=== PATIENT | female | born 1955 | race Caucasian/White ===

== ENCOUNTER 2020-05-06 09:54 | Outpatient (CLI) | payer OTHER, SELFPAY ==
--- NOTE | ~2020-05-06 | XR_ITS ---
EXAMINATION: XR hip BI wo pelvis INDICATION: Bilateral hip pain TECHNIQUE: Two views of each hip are obtained. COMPARISON: 07/12/2012 FINDINGS: Bone alignment is normal. There is no fracture. There is mild bilateral hip osteoarthritis, unchanged since the comparison examination. Pelvic phleboliths are noted. The soft tissues are other enriquez unremarkable. IMPRESSION: 1. Mild osteoarthritis of the hips. Reviewed, dictated and finalized at location A.
== END 2020-05-06 09:55 | disposition home or self-care (01) ==
LOC: ANHIMG 10:11
PROVIDERS: PCP Family Medicine; Visit Provider Family Medicine
DX: M25.559 Pain in unspecified hip (principal); M16.0 Bilateral primary osteoarthritis of hip
CPT/HCPCS: 73521

== ENCOUNTER 2021-04-28 15:37 | Emergency (ER) | payer OTHER, SELFPAY ==
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
[2021-04-28 16:10] VITALS: BP 129/79; PULSE 91; RESP 20; TEMP 36.4; O2SAT 99
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
--- NOTE | 2021-04-28 16:56 | PC.NURSE ---
1638-Sling placed on pt for comfort
== END 2021-04-28 16:43 | disposition home or self-care (01) ==
PROVIDERS: Emergency Provider Nurse Practitioner; PCP Family Medicine
DX: S13.9XXA Sprain of joints and ligaments of unspecified parts of neck, initial encounter (principal); V49.40XA Driver injured in collision with unspecified motor vehicles in traffic accident, initial encounter
CPT/HCPCS: 73000; 99213; A4565; G0463

== ENCOUNTER 2021-06-05 11:32 | Outpatient (CLI) | payer OTHER, SELFPAY ==
--- NOTE | ~2021-06-05 | XR_ITS ---
XR_[id number] 06/05/2021 12:17 Indication: Radiculopathy Procedure: 4 views of the cervical spine Comparison: 03/25/2010 Findings: Normal cervical lordosis. No fracture, subluxation or dislocation. There are mild degenerat jorge l endplate changes at C3-4, C5-6 and C6-7. No prevertebral soft tissue swelling. There is mild mult ilevel uncinate and facet degenerative change. Lung apices are normal. Odontoid process within normal limits. Impression: 1: Mild cervical spondylosis. Reviewed, dictated and finalized at location A. GREE TRACER Impression: 1: Mild cervical spondylosis.
== END 2021-06-05 11:33 | disposition home or self-care (01) ==
LOC: ANHIMG 11:38
PROVIDERS: PCP Family Medicine; Visit Provider Physician Assistant
DX: M54.12 Radiculopathy, cervical region (principal); M47.812 Spondylosis without myelopathy or radiculopathy, cervical region
CPT/HCPCS: 72040

== ENCOUNTER 2021-07-08 15:37 | Outpatient (CLI) | payer OTHER, SELFPAY ==
--- NOTE | ~2021-07-08 | MR_ITS ---
EXAMINATION: MR cervical spine wo con DATE: 07/08/2021 16:41 INDICATION: Cervical radiculopathy. TECHNIQUE: Magnetic resonance imaging (MRI) of the cervical spine was performed without intravenous c ontrast. Sequences included sagittal T2-weighted FSE, sagittal T2-weighted FS FSE, sagittal T1-weight ed FSE, axial MERGE, and axial T2-weighted FSE. COMPARISON: Cervical spine MRI 12/11/2003, radiographs 06/05/2021 FINDINGS: There is 4 degrees levocurvature of cervical spine. There is mild chronic anterior wedging of C5 vertebral body. There is mildly decreased disc height at C2-C3 and C3-C4 and moderately decreas ed disc height from C4-C5 through C6-C7 with endplate remodeling. The spinal cord signal intensity is normal. The following disc levels are specifically discussed: C2-C3: There is a central protrusion. There is mild bilateral uncovertebral joint osteoarthritis. The re is severe bilateral facet joint osteoarthritis. There is mild left neural foraminal stenosis. Ther e is mild central canal stenosis with ventral indentation of the spinal cord. C3-C4: The disc is bulging. There is severe bilateral uncovertebral joint osteoarthritis. There is mo derate right and mild left facet joint osteoarthritis. There is moderate right and mild left neural f oraminal stenosis. There is mild central canal stenosis with ventral indentation of the spinal cord. C4-C5: The disc is bulging. There is severe bilateral uncovertebral joint osteoarthritis. There is mo derate right and mild left facet joint osteoarthritis. There is moderate bilateral neural foraminal s tenosis. There is mild central canal stenosis. C5-C6: The disc is bulging. There is severe bilateral uncovertebral joint osteoarthritis. There is mo derate right and severe left facet joint osteoarthritis. There is moderate right and mild left neural foraminal stenosis. There is mild central canal stenosis. C6-C7: The disc is bulging. There is severe bilateral uncovertebral joint osteoarthritis. There is se sharmila bilateral facet joint osteoarthritis. There is moderate bilateral neural foraminal stenosis. The re is mild central canal stenosis with ventral indentation of the spinal cord. C7-T1: The disc does not extend beyond the endplate margin. There is mild bilateral uncovertebral caitlyn nt osteoarthritis. There is severe bilateral facet joint osteoarthritis. There is mild bilateral neur al foraminal stenosis. There is no central canal stenosis. IMPRESSION: 1. Moderate cervical spondylosis. Reviewed, dictated and finalized at location A. PRODUCTION COOK
== END 2021-07-08 15:38 | disposition home or self-care (01) ==
PROVIDERS: PCP Family Medicine; Visit Provider Family Medicine
DX: M47.23 Other spondylosis with radiculopathy, cervicothoracic region (principal); M48.03 Spinal stenosis, cervicothoracic region
CPT/HCPCS: 72141

== ENCOUNTER 2022-09-03 07:48 | Outpatient (CLI) | payer OTHER, SELFPAY ==
--- NOTE | ~2022-09-03 | MM_ITS ---
EXAMINATION: MM screening lizeth BI w corey HISTORY: Screening mammogram TECHNIQUE: Craniocaudal and mediolateral oblique 3-D tomosynthesis images were obtained and synthetic 2-D images were generated. CAD analysis was submitted and interpreted. COMPARISON: 04/11/2019, 04/22/2014 bilateral screening mammogram examinations BREAST PARENCHYMAL COMPOSITION: There are scattered areas of fibroglandular density. FINDINGS: Right breast: There is no evidence of suspicious mass, calcification, or architectural dist ortion to suggest malignancy in the right .breast. There has been no suspicious interval change. Left breast: Stable skin lesion in the lower mid outer posterior left breast, unchanged since 04/22/20 14. There is a linear array of linear microcalcifications in the upper outer left breast which are suspic ious. Magnification views are recommended. IMPRESSION: 1. Linear array of grouped linear microcalcifications in the upper outer left breast 2. Magnification diagnostic mammographic views of left breast are recommended BI-RADS Category 0: Incomplete: Needs additional imaging evaluation. Reviewed, dictated and finalized at location A. LFISH PROCESSING MACHINE TENDER IMPRESSION: 1. Linear array of grouped linear microcalcifications in the upper outer left b reast 2. Magnification diagnostic mammographic views of left breast are recommended BI-RADS Category 0: Incomplete: Needs additional imaging evaluation.
== END 2022-09-03 07:49 | disposition home or self-care (01) ==
PROVIDERS: PCP Family Medicine; Visit Provider Family Medicine
DX: Z12.31 Encounter for screening mammogram for malignant neoplasm of breast (principal); R92.8 Other abnormal and inconclusive findings on diagnostic imaging of breast
CPT/HCPCS: 77063; 77067

== ENCOUNTER 2022-09-20 13:30 | Outpatient (CLI) | payer OTHER, SELFPAY ==
--- NOTE | ~2022-09-20 | MMUS_ITS ---
EXAMINATION: MM diagnostic lizeth LT w corey, US breast LT limited HISTORY: Linear array of grouped linear microcalcifications in upper outer left breast on August screening mammogram TECHNIQUE: Additional ML 3-D tomosynthesis images of the left breast were performed and synthetic 2-D images were generated. Magnification ML, MLO and CC views. CAD analysis was submitted and interprete d. High resolution upper outer quadrant left breast ultrasound was performed. COMPARISON: 09/03/2022, 04/11/2019 bilateral screening mammogram examinations FINDINGS: MAMMOGRAPHIC FINDINGS: There is a linear array of linear microcalcifications in the upper outer left breast. ULTRASOUND: There is no sonographic correlate for the microcalcifications. No suspicious mass or shadowing is det ected. A couple of benign appearing lymph nodes are noted at 2:00 and 3:00 13 cm from the nipple. IMPRESSION: 1. Indeterminate linear array of linear microcalcifications in upper outer quadrant of left breast wi thout sonographic correlate 2. Stereotactic biopsy of upper outer quadrant left breast grouped microcalcifications is recommended BI-RADS category 4, suspicious findings. Dr. Bethea telephoned the report and stereotactic biopsy recommendation on 09/20/2022 at 1517 hours to Linda Golden Reviewed, dictated and finalized at location A. ENT MENDER IMPRESSION: 1. Indeterminate linear array of linear microcalcifications in upper outer quad rant of left breast without sonographic correlate 2. Stereotactic biopsy of upper outer quadrant left breast grouped microcalcifi cations is recommended BI-RADS category 4, suspicious findings. Dr. Bethea telephoned the report and stereotactic biopsy recommendation on 023 at 1517 hours to Linda Mcallister IMPRESSION: 1. Indeterminate linear array of linear microcalcifications in upper outer quad rant of left breast without sonographic correlate 2. Stereotactic biopsy of upper outer quadrant left breast grouped microcalcifi cations is recommended BI-RADS category 4, suspicious findings. Dr. Btehea telephoned the report and stereotactic biopsy recommendation on 023 at 1517 hours to Linda Mcallister
== END 2022-09-20 13:31 | disposition home or self-care (01) ==
LOC: ANHIMG 13:31
PROVIDERS: PCP Family Medicine; Visit Provider Family Medicine
DX: R92.8 Other abnormal and inconclusive findings on diagnostic imaging of breast (principal)
CPT/HCPCS: 76642; 77061; 77065; G0279

== ENCOUNTER 2022-10-05 12:20 | Outpatient (CLI) | payer OTHER, SELFPAY ==
--- NOTE | ~2022-10-05 | MM_ITS ---
EXAMINATION: MM stereotactic bx LT, MM post biopsy diagnostic LT, MM stereotactic specimen LT, Specim en Radiograph, Tissue Marker Clip Placement, Unilateral Mammogram DATE: 10/05/2022 14:30 (accession [id number]), 10/05/2022 14:31 (accession [id number]), 10/05 14:31 (accession [id number]) INDICATION: Abnormal mammogram: Indeterminate linear array of linear microcalcifications in the upper outer quadrant of the left breast on September 20, 2022. TECHNIQUE AND FINDINGS: The risks and potential benefits of the procedure were discussed with the patient and written informe d consent was obtained. Timeout procedure was performed. The patient was placed in the prone position on the dedicated stereotactic table with the left breast in lateral medial compression, and the area of interest was localized and targeted utilizing digital imaging with stereotaxis. After sterile preparation of the skin, 1% lidocaine was utilized for local anesthesia at the skin pun cture site and 2 % lidocaine with epinephrine was utilized for deeper local anesthesia/is about the b iopsy site. A 9G SportSetter vacuum assisted biopsy needle was advanced to the level of the calcification of interest from a lateral approach utilizing stereotactic guidance and a total of 12 tissue core bio psies were obtained. A specimen radiograph demonstrates that the calcifications of interest are included within the tissue cores. A tissue marker clip was then placed at the biopsy site. A digital mammographic exposure co nfirmed the successful deployment of the biopsy marker. The needle was removed and hemostasis was ac hieved. A sterile bandage was applied. The patient tolerated the procedure well and there is no jose miguel dence of significant immediate complication. The patient was given verbal as well as written postpro cedural instructions prior to discharge from the department. Tissue cores were submitted to surgical pathology for histologic analysis. A 2-view left unilateral digital mammogram was obtained post procedure, demonstrating the tissue jaylen er clip in expected position. IMPRESSION: 1. Successful stereotactic biopsy of upper outer quadrant left breast microcalcifications, followed by tissue marker clip placement. Please refer to pathology report for histologic analysis. Reviewed, dictated and finalized at Location [facility]. Reviewed, dictated and finalized at location A. IMPRESSION: 1. Successful stereotactic biopsy of upper outer quadrant left breast microca lcifications, followed by tissue marker clip placement. Please refer to pathol ogy report for histologic analysis. IMPRESSION: 1. Successful stereotactic biopsy of upper outer quadrant left breast microca lcifications, followed by tissue marker clip placement. Please refer to pathol ogy report for histologic analysis.
== END 2022-10-05 12:21 | disposition home or self-care (01) ==
PROVIDERS: PCP Family Medicine; Visit Provider Family Medicine
DX: R92.0 Mammographic microcalcification found on diagnostic imaging of breast (principal); R92.8 Other abnormal and inconclusive findings on diagnostic imaging of breast
CPT/HCPCS: 19081; 77065; 88305; A4648

== ENCOUNTER → 2023-01-08 07:25 | Outpatient (CLI) | payer OTHER, SELFPAY ==
--- NOTE | ~2023-01-08 | MR_ITS ---
MRI of the lumbar spine Clinical History: Back pain Technique: Axial T2-weighted images, and sagittal T1-weighted, T2-weighted, and T2 fat-sat images wer e acquired. Findings: There is no fracture or subluxation of the lumbar spine. Vertebral bodies maintain normal h eight and alignment. No suspicious bone marrow signal abnormality seen. At L1-L2, there is no disc bulge or herniation. There is moderate facet arthropathy. No spinal canal stenosis or neural foraminal narrowing. At L2-L3, there is moderate degenerative disc narrowing, with mild disc bulge and moderate facet arth ropathy. No olvin central canal stenosis. There is minimal right neural foraminal narrowing. Left jacinta ral foramen preserved. At L3-L4, there is minimal disc bulge with moderate facet arthropathy. No olvin central canal stenosi s. There is minimal left neural foraminal narrowing and mild right neural foraminal narrowing. At L4-L5, there is mild disc bulge with moderate facet arthropathy. No central canal stenosis. There is mild bilateral neural foraminal narrowing. At L5-S1, there is minimal disc bulge. There is advanced facet arthropathy. No central canal stenosis . There is moderate to severe left neural foraminal narrowing. Right neural foramen preserved. Paravertebral soft tissues are unremarkable. Impression: Mild degenerative spondylosis overall, as detailed above. Reviewed, dictated and finalized at [facility]. Impression: Mild degenerative spondylosis overall, as detailed above.
== END ==
PROVIDERS: PCP Family Medicine; Visit Provider Family Medicine
DX: M54.41 Lumbago with sciatica, right side (principal); M47.896 Other spondylosis, lumbar region
CPT/HCPCS: 72148

== ENCOUNTER 2025-05-31 00:53 | Day surgery (SDC) | payer OTHER, SELFPAY ==
--- OUTSIDE RECORDS SUMMARY | 2014-04-21 23:00 | XMS_ITS | Encounter Summary ---
Author Organization [facility] Address [address] [place] [address] Care Team Providers Care Manager Environmental Health And Safety Name Role Phone Unavailable Primary Care Provider Unavailabl e Reason for Visit * Diagnostic Imaging (Routine) - Closed Specialty Diagnoses / Procedures Referred By Elías aviles Referred To Contact Diagnoses Abnormal mammogram of left breast Procedures Breast Imaging Screening Outside Reference Devika Tidwell NP Phone: tel: fax: Referral ID Status Reason Start Date Expiration Date Visits Re quested Visits Authorized [id number] Closed 10/21/2022 11/20/2023 1 1 Encounter Details Date Type Department Care Team (Late st Contact Info) Description 04/22/2014 Hospital Encounter [facility] [address] [place] [address] Social History Tobacco Use Types Packs/Day Years Used Date Smoking Tobacco: Never Passive Smoke Exposure: Past Smokeless Tobacco: Never AUDIT-C Answer Date Recorded Q1: How often do you have a drink containing alc ohol? Monthly or less 04/16/2024 Q2: How many drinks containi ng alcohol do you have on a typical day when you are drinking? 1 or 2 04/16/2024 Q3: How often do you have si x or more drinks on one occasion? Never 04/16/2024 Personal Safety Answer Date Recorded Have you ever been in or are you currently in a harmful physical or emotional relationship or is someone making you feel afraid or unsafe? 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 Gender Identity Female 03/05/2022 7:52 AM CDT Sexual Orientation Straight 03/05/2022 7: 52 AM CDT documented as of this encounter Functional Status * Difference in Last Two Shree Scores Answer Date of Assessment Author 0 05/04/2024 8:00 AM CDT Octavia Vallejo RN * Question Answer Date of Assessment Author MAP (mmHg) 74 05/04/2024 11:50 AM CDT Leda Crocker OT * Question Answer Date of Assessment Author Childs Fall Risk Score (Score >= 45 places fall precaution order) 60 05/04/2024 8:00 AM CDT Octavia Vallejo ace, RN Prior Fall Event (Autopopulated from EMR) None found 05/04/2024 8:00 AM CDT Brigida Vallejo RN * Question Answer Date of Assessment Author BP Location Right arm 05/04/2024 7:43 AM CDT Ada Snell BP Method Automatic 05/04/2024 7:43 AM CDT Ada Snell * Fall Risk Interventions Question Answer Date of Assessment Author All Low Fall Interventions Applied Yes 05/04/2024 8:00 AM Octavia Vega RN All Moderate Fall Interventions Applied Yes 05/04/2024 8:00 AM HARLEENT Octavia Vallejo RN All Moderate Fall Risk Interventions EXCEPT: Fall risk sign with education;Gait belt at bedside;PT eval requested or obtained;OT eval requested or obtained 12/14/2022 1:12 PM Alem Arriola RN All High Fall Risk Interventions Applied No 05/04/2024 8:00 AM Octavia Vega RN All High Risk Interventions EXCEPT: Bed alarm;Chair alarm 05/04/2024 8:00 AM Octavia Vega RN Additional Interventions Applied Over-bed table on non-exit side 05/04/2024 8:00 AM Octavia Vega RN Reason For Exception(s) pacu 12/15/19 1:12 PM Alem Arriola RN Reason For Exception(s) pt calls appropriately 1 8:00 AM Octavia Vega GABRIELE * B.M.A.T. - Bedside Mobility Assessment Tool for Nurses Question Answer Date of Assessment Author Is patient able to participate in the BMAT? Yes 05/03/2024 8:37 PM Akira Jackson RN BMAT Level Level 3 - Yellow 05/03/2024 8:37 PM Akira Garza RN Level 3 Equipment Use assistive device such as cane/walker;Use non-powered stand aid 05/03/2024 8:37 PM Akira Jackson RN * Question Answer Date of Assessment Author 1. Has the patient self-reported, presented with clinical signs of, or have a documented history of any of the following within the past 30 days? No 05/03/2024 3:50 PM Octavia Vega ace, RN * Question Answer Date of Assessment Author Is the patient being treated today because it is known or suspected that they prepared, started, or tried to end their life? No 05/03/2024 3:50 PM Octavia Vega ace, RN * Question Answer Date of Assessment Author 1. In the past month, have y ou wished you were or that you could go to sleep and not wake up? No 05/03/2024 3:50 PM Octavia Vega ace, RN 2. In the past month, have y ou actually had any thoughts of killing yourself? No 05/03/2024 3:50 PM Octavia Vega ace, RN 6. Have you ever done anything, started to do anything, or prepared to do anything to end your life? No 05/03/2024 3:50 PM Octavia Vega, GABRIELE * Suicide Risk Level Answer Date of Assessment Author No risk level 05/03/2024 3:50 PM Octavia Vega RN * Self-Injurious Risk Level Answer Date of Assessment Author No risk level 05/03/2024 3:50 PM Octavia Vega, GABRIELE * Alcohol Withdrawal BP Hierarchy Answer Date of Assessment Author 82 12/14/2022 1:10 PM Alem Arriola, GABRIELE * Pressure Injury Prevention Question Answer Date of Assessment Author Pressure Ulcer Prevention Interventions Keep skin clean and dry (Sensory Perception/Moisture ) 05/03/2024 8:37 PM Akira Jackson RN * Transdermal Patch Admission Assessment Question Answer Date of Assessment Author Transdermal Patch Assessment on Admission Not Present 05/03/2024 3:50 PM Octavia Vega ace, RN * AUDIT-C Score Answer Date of Assessment Author 1 04/16/2024 3:47 PM Stephania Caballero RN * Alcohol Use Question Answer Date of Assessment Author Q1: How often do you have a drink containing alcohol? Monthly or less 04/16/2024 3:47 PM Saranya Caballero RN Q2: How many drinks containing alcohol do you have on a typical day when you are drinking? 1 or 2 04/16/2024 3:47 PM Saranya Caballero RN Q3: How often do you have six or more drinks on one occasion? Never 04/16/2024 3:47 PM Saranya Caballero RN * Integumentary Question Answer Date of Assessment Author Skin Color Appropriate for ethnicity 05/03/2024 8:37 PM Akira Jackson RN Skin Condition/Temp Warm;Dry 05/03/2024 8 :37 PM Akira Jackson RN Skin Integrity Surgical incision 05/04/2024 8:0 0 AM Octavia Vega RN Skin Turgor Non-tenting 05/03/2024 8:37 PM Akira Jackson RN Integumentary Additional Assessments Yes-Shree 05/03/2024 8:37 PM Akira Jackson RN Integumentary (WDL) X 05/04/2024 8 :00 AM Octavia Vega RN Skin Location R hip 05/04/2024 8:00 AM Octavia Vega RN * Wound (LDAs) Question Answer Date of Assessment Author Type of Wound (LDA) Wound 05/03/2024 3:35 PM CD T Keira Hurley, GABRIELE * Shree Scale Question Answer Date of Assessment Author Shree Scale Used Shree 05/03/2024 9:26 AM CDT Rhina Burger, GABRIELE * Question Answer Date of Assessment Author Affect Flat 03/24/2022 8:00 AM CDT Marilyn Aragon RN Mood Angry 03/24/2022 8:00 AM CDT Edi mckinney, Marilyn Joseph RN * Question Answer Date of Assessment Author Percent Meal Eaten (%) 75 05/04/2024 7:45 AM CDT Ada Snell * Question Answer Date of Assessment Author BP Location Right arm 05/04/2024 7:43 AM CDT Ada Snell BP Method Automatic 05/04/2024 7:43 AM CDT Ada Snell * Question Answer Date of Assessment Author Bed In Lowest Position Yes 03/25/2022 2:00 PM HARLEENT Sandra Tidwell RN Bed Wheels Locked Yes 03/25/2022 2:00 PM CDT Sandra Tidwell RN * Fall Risk Interventions Question Answer Date of Assessment Author All Low Fall Interventions Applied Yes 05/04/2024 8:00 AM Octavia Vega RN All Moderate Fall Interventions Applied Yes 05/04/2024 8:00 AM HARLEENT Octavia Vallejo RN All Moderate Fall Risk Interventions EXCEPT: Fall risk sign with education;Gait belt at bedside;PT eval requested or obtained;OT eval requested or obtained 12/14/2022 1:12 PM HARLEENT Alem Monsivais RN All High Fall Risk Interventions Applied No 05/04/2024 8:00 AM Octavia Vega RN All High Risk Interventions EXCEPT: Bed alarm;Chair alarm 05/04/2024 8:00 AM Octavia Vega RN Additional Interventions Applied Over-bed table on non-exit side 05/04/2024 8:00 AM Octavia Vega RN Reason For Exception(s) pacu 12/15/19 1:12 PM HARLEENT Alem Monsivais RN Reason For Exception(s) pt calls appropriately 1 8:00 AM CDT Octavia Vallejo RN * Question Answer Date of Assessment Author Toileting: Assistance with Bedside commode 03/25/2022 8:00 AM CDT Sandra Tidwell RN * ADL Screening Question Answer Date of Assessment Author Patient's Vision Adequate to Safely Complete Daily Activities Yes 05/03/2024 3:50 PM HARLEENT Octavia Vallejo ace, RN Patient's Judgement Adequate to Safely Complete Daily Activities Yes 05/03/2024 3:50 PM HARLEENT Octavia Vallejo ace, RN Patient's Memory Adequate to Safely Complete Daily Activities Yes 05/03/2024 3:50 PM HARLENET Octavia Vallejo ace, RN Patient Able to Express Needs/Desires Yes 05/03/2024 3:50 PM HARLEENT Octavia Vallejo ace, RN Dressing Independent 05/03/2024 3:50 PM Octavia Covarrubias RN Grooming Independent 05/03/2024 3:50 PM Octavia Covarrubias RN Feeding Independent 05/03/2024 3:50 PM HARLEENT Octavia Sandy RN Bathing Independent 05/03/2024 3:50 PM Octavia Covarrubias RN Toileting Independent 05/03/2024 3:50 PM Octavia Covarrubias RN In/Out Bed Independent 05/03/2024 3:50 PM Octavia Covarrubias RN Walks in Home Independent 05/03/2024 3:50 PM CDT Octavia Guthrie RN Weakness of Legs None 05/03/2024 3:50 PM Octavia Calixto RN Weakness of Arms/Hands None 05/03/2024 3:50 PM Octavia Vega RN Hearing - Right Ear Functional 05/03/2024 3:50 PM CD T Octavia Vallejo RN Hearing - Left Ear Functional 05/03/2024 3:50 PM Octavia Vega RN Dominant hand? Right 05/03/2024 3:50 PM HARLEENT Wax tiana, Octavia Shruthi, RN Decline in ADLs in last 2 weeks? No 05/03/2024 3:50 PM HARLEENT Octavia Vallejo ace, RN * Therapy Consults Question Answer Date of Assessment Author PT Evaluation Needed 1 05/03/2024 3:50 PM C Octavia Ludwig RN OT Evaluation Needed 1 05/03/2024 3:50 PM C Octavia Ludwig RN IT SUPPORT MANAGER Evaluation Needed 2 05/03/2024 3:50 PM HARLEENT Octavia Vallejo RN * Assistive Devices Question Answer Date of Assessment Author Assistive Devices/DME CPAP/BiPAP;Cane 05/03/2024 3:50 PM HARLEENT Octavia Vallejo RN * Nutrition Question Answer Date of Assessment Author Feeding Level of Assistance Able to feed self 03/25/2022 8:00 AM HARLEENT Sandra Tidwell RN Appetite Good 03/24/2022 9:00 PM HARLEENT Zaina Larkin od, RN Diet Supplement Name/Percent Consumed % consist carb 03/24/2022 9:00 PM CDT Toni Prather se, RN * Hygiene Question Answer Date of Assessment Author Oral Care Mouth rinsed 05/04/2024 8:00 AM Octavia Covarrubias RN Hygiene Level of Assistance Minimal assist 05/04/2024 8:00 AM Octavia Vega RN Reason not bathed/showered Bath already completed at home or other setting 05/03/2024 3:50 PM Octavia Vega RN Bath Not bathed/showered 05/04/2024 8:00 AM Octavia Bull RN documented as of this encounter Mental Status * Question Answer Entry Date Author Level of Consciousness Alert;Awake 8:37 PM Akira Jackson RN Orientation Oriented X4 (person, place, time, situation) 05/03/2024 8:37 PM Akira Jackson RN Neuro (WDL) X 05/04/2024 8:00 AM Octavia Vega RN * Short Blessed Test Question Answer Entry Date Author What year is it now? 0 04/16/2024 3:30 PM Saranya Caballero RN What month is it now? 0 04/16/2024 3:30 PM Saranya Caballero RN Without looking at the clock, tell me what time it is 0 04/16/2024 3:30 PM Saranya Caballero RN Count aloud backwards from 20-1 0 04/16/2024 3:30 PM Saranya Caballero RN Say the months of the year backwards in reverse order 0 04/16/2024 3:30 PM Saranya Caballero RN Repeat the name and address I asked you to remember 0 04/16/2024 3:30 PM Saranya Caballero RN Repeat this name and address after me Abdulaziz Bray [address] [place] [address] 04/16/2024 3:30 PM Saranya Caballero RN Short Blessed Total Score 0 04/16/2024 3:30 PM Saranya Caballero RN * Question Answer Entry Date Author Neuro (WDL) WDL 05/03/2024 9:26 AM CDT Rhina Tavarez RN documented in this encounter Plan of Treatment Not on file documented as of this encounter Procedures Procedure Name Priority Date/Time Associated Diagnosis Comments BREAST IMAGING MG SCREENING OUTSIDE REFERENCE Schedule Routine, Read Routine (OP Routine) 04/22/2014 12:00 AM CDT Abnormal mammogram of left breast documented in this encounter Results * Breast Imaging Screening Outside Reference (04/22/2014 12:00 AM CDT) Impressions [facility] - 10/21/2022 4:00 PM CDT These images are for Reference purposes only and have not been reviewed by [facility] Radiology. There will be no report generated by a [facility] Radiologist. Narrative [facility] - 10/21/2022 4:00 PM CDT EXAMINATION: Images For Reference Purposes Only us Devika Tidwell NP IMG MAMMO PROCEDURES Fin al Result [facility] documented in this encounter Visit Diagnoses Not on filedocumented in this encounter
--- OUTSIDE RECORDS SUMMARY | 2019-04-10 23:00 | XMS_ITS | Encounter Summary ---
Author Organization [facility] Address [address] [place] [address] Care Team Providers Care Strap Buckler Name Role Phone Unavailable Primary Care Provider Unavailabl e Reason for Visit * Diagnostic Imaging (Routine) - Closed Specialty Diagnoses / Procedures Referred By Elías aviles Referred To Contact Procedures Breast Imaging Screening Outside Reference Devika Tidwell NP Phone: tel: fax: Referral ID Status Reason Start Date Expiration Date Visits Re quested Visits Authorized [id number] Closed 10/19/2022 11/18/2023 1 1 Encounter Details Date Type Department Care Team (Late st Contact Info) Description 04/11/2019 Hospital Encounter [facility] [address] [place] [id number] Social History Tobacco Use Types Packs/Day Years [...] on file 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 Yes 05/03/2024 8:37 PM HARLEENT Akira Polanco RN BMAT Level Level 3 - Yellow 05/03/2024 8:37 PM CDT Akira Quach RN Level 3 Equipment Use assistive device such as cane/walker;Use non-powered stand aid 05/03/2024 8:37 PM HARLEENT Akira Polanco RN * Question Answer Date of Assessment Author 1. Has the patient self-reported, presented with clinical signs of, or have a documented history of any of the following within the past 30 days? No 05/03/2024 3:50 PM HARLEENT Octavia Vallejo ace, RN * Question Answer Date of Assessment Author Is the patient being treated today because it is known or suspected that they prepared, started, or tried to end their life? No 05/03/2024 3:50 PM HARLEENT Octavia Vallejo ace, RN * Question Answer Date of [...] end your life? No 05/03/2024 3:50 PM HARLEENT Octavia Vallejo RN * Suicide Risk Level Answer Date of Assessment Author No risk level 05/03/2024 3:50 PM HARLEENT Octavia Vallejo RN * Self-Injurious Risk Level Answer Date of Assessment Author No risk level 05/03/2024 3:50 PM HARLEENT Octavia Vallejo RN * Alcohol Withdrawal BP Hierarchy Answer Date of Assessment Author 82 12/14/2022 1:10 PM HARLEENT Alem Monsivais RN * Pressure Injury Prevention Question Answer Date [...] one occasion? Never 04/16/2024 3:47 PM Saranya Cablalero RN * Integumentary Question Answer Date of [...] of Wound (LDA) Wound 05/03/2024 3:35 PM Keira Gould RN * Shree Scale Question Answer Date of Assessment Author Shree Scale Used Shree 05/03/2024 9:26 AM CDT Rhina Burger, GABRIELE * Question Answer Date of Assessment Author Affect Flat 03/24/2022 8:00 AM CDT Marilyn Aragon RN Mood Angry 03/24/2022 8:00 AM CDT Marilyn Aragon RN * Question Answer Date of Assessment Author Percent Meal Eaten (%) 75 05/04/2024 7:45 AM CDT Ada Snell * Question Answer Date of Assessment Author BP Location Right arm 05/04/2024 7:43 AM CDT Ada Snell BP Method Automatic 05/04/2024 7:43 AM CDT Ada Snell * Question Answer Date of Assessment Author Bed In Lowest Position Yes 03/25/2022 2:00 PM CDT Sandra Tidwell RN Bed Wheels Locked Yes [...] EXCEPT: Bed alarm;Chair alarm 05/04/2024 8:00 AM HARLEENT Octavia Vallejo RN Additional Interventions Applied Over-bed table on non-exit side 05/04/2024 8:00 AM Octavia Vega RN Reason For Exception(s) pacu 12/15/19 1:12 PM HARLEENT Alem Monsivais RN Reason For Exception(s) pt calls appropriately 1 8:00 AM HARLEENT Octavia Vallejo RN * Question Answer Date of Assessment Author Toileting: Assistance with Bedside commode 03/25/2022 8:00 AM CDT Sandra Tidwell RN * ADL Screening Question Answer Date of Assessment Author Patient's Vision Adequate to Safely Complete Daily Activities Yes 05/03/2024 3:50 PM CDT Octavia Vallejo ace, RN Patient's Judgement Adequate to Safely Complete Daily Activities Yes 05/03/2024 3:50 PM HARLEENT Octavia Vallejo ace, RN Patient's Memory Adequate to Safely Complete Daily Activities Yes 05/03/2024 3:50 PM HARLEENT Octavia Vallejo ace, RN Patient Able to Express Needs/Desires Yes 05/03/2024 3:50 PM HARLEENT Octavia Vallejo ace, RN Dressing Independent 05/03/2024 3:50 PM HARLEENT Octavia Sandy RN Grooming Independent 05/03/2024 3:50 PM HARLEENT Octavia Sandy RN Feeding Independent 05/03/2024 3:50 PM HARLEENT Octavia Sandy RN Bathing Independent 05/03/2024 3:50 PM HARLEENT Octavia Sandy RN Toileting Independent 05/03/2024 3:50 PM Octavia Covarrubias RN In/Out Bed Independent 05/03/2024 3:50 PM Octavia Covarrubias RN Walks in Home Independent 05/03/2024 3:50 PM HARLEENT Octavia Guthrie RN Weakness of Legs None 05/03/2024 3:50 PM HARLEENT Octavia Townsend RN Weakness of Arms/Hands None 05/03/2024 3:50 PM HARLEENT Octavia Vallejo RN Hearing - Right Ear Functional 05/03/2024 3:50 PM CD T Octavia Vallejo RN Hearing - Left Ear Functional 05/03/2024 3:50 PM Octavia Vega RN Dominant hand? Right 05/03/2024 3:50 PM HRALEENT Octavia Parisi RN Decline in ADLs in last 2 weeks? No 05/03/2024 3:50 PM HARLEENT Octavia Vallejo ace, RN * Therapy Consults Question Answer Date of Assessment Author PT Evaluation Needed 1 05/03/2024 3:50 PM C Octavia Ludwig RN OT Evaluation Needed 1 05/03/2024 3:50 PM C Octavia Ludwig RN BRAND DIRECTOR Evaluation Needed 2 05/03/2024 3:50 PM HARLEENT Octavia Vallejo RN * Assistive Devices Question Answer Date of Assessment Author Assistive Devices/DME CPAP/BiPAP;Cane 05/03/2024 3:50 PM HARLEENT Octavia Vallejo RN * Nutrition Question Answer Date of Assessment Author Feeding Level of Assistance Able to feed self 03/25/2022 8:00 AM Sandra Bentley RN Appetite Good 03/24/2022 9:00 PM HARLEENT Zaina Larkin od, RN Diet Supplement Name/Percent Consumed % consist carb 03/24/2022 9:00 PM HARLEENT Toni Prather se, RN * Hygiene Question [...] name and address after me Abdulaziz Bray [address] [place] [address] 04/16/2024 3:30 PM Saranya Caballero RN Short Blessed Total Score 0 04/16/2024 3:30 PM Saranya Caballero RN * Question Answer Entry Date Author Neuro (IVET) WD 05/03/2024 9:26 AM CDT Rhina Tavarez RN documented in this encounter Plan of Treatment Not on file documented as of this encounter Procedures Procedure Name Priority Date/Time Associated Diagnosis Comments BREAST IMAGING MG SCREENING OUTSIDE REFERENCE Routine 04/11/2019 12:00 AM CDT documented in this encounter Results * Breast Imaging Screening Outside Reference (04/11/2019 12:00 AM CDT) Impressions [facility] - 10/19/2022 2:17 PM CDT These images are for Reference purposes only and have not been reviewed by [facility] Radiology. There will be no report generated by a [facility] Radiologist. Narrative [facility] - 10/19/2022 2:17 PM CDT EXAMINATION: Images For Reference Purposes Only us Devika Tidwell NP IMG MAMMO PROCEDURES Fin al Result [facility] documented in this encounter Visit Diagnoses Not on filedocumented in this encounter
[2025-05-24 10:29] VITALS: BMI 38.5
--- OUTSIDE RECORDS SUMMARY | 2025-05-31 00:56 | XMS_ITS | Encounter Summary ---
Author Organization [facility] Address [address] [place] [address] Phone Care Team Providers Care Certified Massage Therapist Name Role Phone Talat Mckeon DO Primary Care Provider [phone] Encounter Details Date Type Department Care Team (Late st Contact Info) Description 03/26/[address] [facility] Medicine Surgery [address] 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
--- OUTSIDE RECORDS SUMMARY | 2025-05-31 00:56 | XMS_ITS | Clinical Summary ---
Author Organization [facility] Address [address] [place] [address] Care Team Providers Care Senior Grant Writer Name Role Phone Talat Mckeon Primary Care Provider [phone] Allergies Active Allergy Reactions Criticality Noted Date Comments Iodinated Contrast Media Rash Medium 09/21/2021 Medications atorvastatin (LIPITOR) 40 mg tabletIndicatio ns:hyperlipidem ia Take 1 tablet (40 mg total) by mouth nightly 2 Active cetirizine (ZyrTEC) 10 mg capsuleIndicati ons:Seasonal Allergic Rhinitis Take 10 mg by mouth every morning Active metFORMIN (GLUCOPHAGE) 500 mg tabletIndicatio ns:type 2 diabetes mellitus Take 1 tablet (500 mg total) by mouth 2 (two) times a day with meals 2 Active FLUoxetine (PROzac) 20 mg capsuleIndicati ons:depression Take 1 capsule (20 mg total) by mouth every morning 2 Active folic acid (FOLVITE) 800 mcg tabletIndicatio ns:supplement Take 1 tablet (800 mcg total) by mouth every morning Active cholecalciferol (VITAMIN D-3) 25 mcg (1,000 unit) tabletIndicatio ns:Vitamin D Deficiency Take 1 tablet (1,000 Units total) by mouth every morning Active cyanocobalamin (vitamin B-12) 1,000 mcg tabletIndicatio ns:Prevention of Vitamin B12 Deficiency Take 1 tablet (1,000 mcg total) by mouth every morning Active pyridoxine (VITAMIN B-6) 100 mg tabletIndicatio ns:SUPPLEMENT Take 1 tablet (100 mg total) by mouth every morning Active CALCIUM-MAGNESI UM-ZINC ORALIndications :SUPPLEMENT Take 1 tablet by mouth nightly Active ALPHA LIPOIC ACID ORALIndications :supplement Take 1 tablet by mouth every morning Active fluticasone propionate (FLONASE) 50 mcg/actuation nasal sprayIndication s:Allergic Rhinitis Administer 1 spray into each nostril as needed for rhinitis Active docusate sodium (COLACE) 100 mg capsuleIndicati ons:constipatio n Take 1 capsule (100 mg total) by mouth daily as needed for constipation Active furosemide (LASIX ORAL)Indication s:edema/swellin g Take 1 tablet by mouth daily as needed (edema/swelling) Patient unsure of mg dose Active oxyCODONE (ROXICODONE) 5 mg immediate release tabletIndicatio ns:Pain Take 1 tablet (5 mg total) by mouth every 4 (four) hours as needed for pain (Breakthrough Pain) 30 tablet 4 Active Additional Information Patient not taking.Reported on 06/26/2024 traMADoL (ULTRAM) 50 mg tablet Take 1 tablet (50 mg total) by mouth every 8 (eight) hours as needed for pain 42 tablet 4 Active Additional Information Patient not taking.Reported on 06/26/2024 acetaminophen (TYLENOL) 500 mg tablet Take 2 tablets (1,000 mg total) by mouth every 8 (eight) hours 90 tablet 1 4 Active aspirin 81 mg enteric coated tabletIndicatio ns:prevention of thrombosis Take 1 tablet (81 mg total) by mouth 2 (two) times a day After 30 days is complete, you may resume your home dose of 81 mg daily 60 tablet 4 Active Additional Information Patient taking differently:81 mg oralDaily, After 30 days is complete, you may resume your home dose of 81 mg daily, Indications: prevention of thrombosis, Reported on 06/26/2024 meloxicam (MOBIC) 7.5 mg tablet Take 1 tablet (7.5 mg total) by mouth daily 30 tablet [address] (PROTONIX) 20 mg EC tablet Take 1 tablet (20 mg total) by mouth daily 30 tablet 4 Active senna-docusate (Senna-S) 8.6-50 mg Take 2 tablets by mouth 2 (two) times a day 80 tablet 1 4 Active Additional Information Patient not taking.Reported on 06/26/2024 Active Problems Problem Noted Date Diagnosed Date Osteoarthritis of right hip, unspecified osteoarthritis type 05/03/2024 Primary osteoarthritis of right hip 03/27/2024 Mass of left breast 11/15/2022 Atypical ductal hyperplasia of breast 11/07/2022 Type 2 diabetes mellitus without complications 0 03/26/2022 Pure hypercholesterolemia, unspecified Obesity, unspecified 03/26/2022 Spinal stenosis, cervical region 03/26/2022 Cervical radiculopathy 03/26/2022 S/P cervical spinal fusion 03/23/2022 Cervical spondylosis with myelopathy 03/01/2022 Overview (03/01/2022): Added automatically from request for surgery [id number] Cervical spinal stenosis 03/01/2022 Overview (03/01/2022): Added automatically from request for surgery [id number] Cervical radiculopathy 03/01/2022 Overview (03/01/2022): Added automatically from request for surgery [id number] Encounters Date Type Department Care Team Description 03/26/[address] [facility] Medicine Surgery [address] [facility] [address] [place] [address] Ivon Ramires from Last 3 Months Immunizations Immunization Administration Dates Next Due Influenza, Quadrivalent, Rec ombinant, Egg Free, Preservative Free, Intramuscular 07/01/2021,05/05/2020,04/11/2019 Influenza, Quadrivalent, Spl it, Preservative Free, Intramuscular 03/23/2018 Influenza, Trivalent, IM (MDV) 05/05/2013 Influenza, Trivalent, Preser vative Free, Intramuscular 04/25/2015 Influenza, Unspecified 06/04/2021 Pneumococcal Polysaccharide PPV23 04/09/2019 TD Preservative Free 09/08/2021 ZOSTER LIVE 05/25/2014 Surgical History Surgery Date Site/Laterality Comments HYSTERECTOMY 07/25/2019 - 07/24/2020 APPENDECTOMY 07/25/1978 - 07/24/1979 OOPHERECTOMY 07/25/1978 - 07/24/1979 Right DILATION AND CURETTAGE OF UTERUS FOOT SURGERY 07/25/1997 - 07/24/1998 Left removal of tumor of left foot with recurrance removed again then radiation for 6 months SPINAL FUSION 03/23/2022 cervical CATARACT EXTRACTION 09/22/2022 - 10/22/2022 Bilateral FL FLUORO GUIDED LUMBAR PUNCTURE 02/14/2023 Right FLUORO GUIDED INJECTION HIP RIGHT 05/12/2023 Right SECTION [id number] COLONOSCOPY WISDOM TOOTH EXTRACTION TONSILLECTOMY rotten out pt reports no surgery. unknown time OVARIAN CYST REMOVAL Bilateral TUBAL LIGATION BREAST BIOPSY 11/22/2022 - 12/22/2022 Left Medical History Medical History Date Comments Anxiety Arthritis Asthma Diabetes mellitus Hypercholesteremia Sleep apnea Obesity PONV (postoperative nausea and vomiting) IV meds for relief, pt reports no help Motion sickness Type 2 diabetes mellitus Family History Medical History Relation Name Comments Diabetes Brother Breast cancer Father Heart disease Father Hypertension Father Stroke Father Cancer Mother Seizures Mother Anesthesia problems Neg Hx Relation Name Status Comments Brother Father Mother Social History Tobacco Use Types Packs/Day Years Used Date Smoking Tobacco: Never Passive Smoke Exposure: Past Smokeless Tobacco: Never Tobacco Cessation:Counseling Given: Not Answered AUDIT-C Answer Date Recorded Q1: How often [...] on file Legal Sex Female 1:02 AM [employer] Gender Identity Female 03/05/2022 7:52 AM CDT Sexual Orientation Straight 03/05/2022 7: 52 AM CDT Last Filed Vital Signs Vital Sign Reading Time Taken Comments Blood Pressure 110/64 05/04/2024 11:50 AM CDT Pulse 91 05/04/2024 11:50 AM CDT Temperature 36.7 C (98.1 F) 05/04/2024 7:43 AM CDT Respiratory Rate 14 05/04/2024 7:43 AM CDT Oxygen Saturation 97% 05/04/2024 11: 50 AM CDT Inhaled Oxygen Concentration - - Weight 108.2 kg (238 lb 9.6 oz) 05/03/2024 8:40 AM CDT Height 165.1 cm (5' 5) 05/03/2024 8:40 AM CDT Body Mass Index 39.71 05/03/2024 8:40 AM CDT Plan of Treatment Health Maintenance Due Date Last Done Comments Albumin Creatinine Ratio, Urine 1955 Colon Cancer Screening-Colonoscopy 1955 Depression Screening 1955 Hepatitis C Screening 1955 Dilated Eye Exam 1955 Foot Exam 1955 Lipid Panel 1955 Hepatitis B Screening 01/25/1972 Zoster Vaccine (2 of 3) 07/20/2014 05/25/2014 Well Visit 65+ 2019 Pneumococcal vaccine 65+ (2 of 2 - PCV) 04/09/2020 04/09/2019 DTaP/Tdap/Td Vaccine (1 - Tdap) 09/09/2021 Osteoporosis Screening-Bone Density Scan 03/10/2024 03/10/2022 Hemoglobin A1C 10/14/2024 04/16/2024, 03/26, 03/16/2022 Breast Cancer Screening-Mammogram 02/21/2025 024 Covid-19 Vaccine (3 - 2024-2 6 season) 2025 12/29/2020, 12/08/2020 Influenza Vaccine (#1) 2025 , 06/04/2021, 05/05/2020, Additional history exists Fall Risk Assessment 05/04/2025 05/04/2024 eGFR 05/04/2025 05/04/2024, 03/26, 03/25/2022, Additional history exists Medical Devices Implanted Type Area Cartridge Assembling Machine Adjuster Device Identifier Shelf Expiration Date Model / Serial / Lot Medtronic Inc Bmp Infuse Sm [id number] - [id number] Implanted:Qty: 1 on 03/23/2022 by Talat Stovall MD at [facility] N/A: Spine Cervical Medtronic Inc 03/25/2023 [id number] / / [id number] Allosource 1-4mm Freeze Dried Crushed Graft 30ml Bone Cancellous [id number] - [id number] Implanted:Qty: 1 on 03/23/2022 by Talat Stovall MD at [facility] N/A: Spine Cervical Allosource 12/19/2025 [id number] / / [id number] Depuy Synthes Spine 3.5mm 16mm Ply Spine Screw Bone Nonsterile 4mm Reynold [id number] - [id number] Implanted:Qty: 7 on 03/23/2022 by Talat Stovall MD at [facility] N/A: Spine Cervical Depuy Synthes Spine [id number] / / Depuy Synthes Spine 4.5mm 26mm Ply Spine Pedicle Screw Bone Nonsterile 4mm Reynold [id number] - [id number] Implanted:Qty: 3 on 03/23/2022 by Talat Stovall MD at [facility] N/A: Spine Cervical Depuy Synthes Spine [id number] / / Depuy Synthes Spine 5.5mm 30mm Ply Spine Pedicle Screw Bone Nonsterile 4mm Reynold [id number] - [id number] Implanted:Qty: 4 on 03/23/2022 by Talat Stovall MD at [facility] N/A: Spine Cervical Depuy Synthes Spine [id number] / / Depuy Synthes Spine 5.5mm 34mm Ply Spine Pedicle Screw Bone Nonsterile 4mm Reynold [id number] - [id number] Implanted:Qty: 2 on 03/23/2022 by Talat Stovall MD at [facility] N/A: Spine Cervical Depuy Synthes Spine [id number] / / Depuy Synthes Spine [id number] Set Screw - [id number] Implanted:Qty: 16 on 03/23/2022 by Talat Stovall MD at [facility] N/A: Spine Cervical Depuy Synthes Spine [id number] / / Depuy Synthes Spine 4mm 240mm Straight Reynold Spinal Titanium [id number] - [id number] Implanted:Qty: 3 on 03/23/2022 by Talat Stovall MD at [facility] N/A: Spine Cervical Depuy Synthes Spine [id number] / / Depuy Synthes Spine Symphony 4mm Spine Occipitocervicothoraci c Short Lateral Offset [id number] - [id number] Implanted:Qty: 1 on 03/23/2022 by Talat Stovall MD at [facility] N/A: Spine Cervical Depuy Synthes Spine [id number] / / Bard Peripheral Vascular Ghiatas 20ga 20cm 9cm Beaded Needle Breast Wire Localization [id number] - [id number] Implanted:Qty: 1 on 12/14/2022 by Dwain Amaral MD at [facility] Left: Breast Bard Peripheral Vascular [id number] / / Reading Orthopaedics Shell Acetabular Trident Ii Tritanium E Od52mm Hip 5 Screw Hole Cluster Sterile 702-04-52e - [id number] Implanted:Qty: 1 on 05/03/2024 at [facility] Right: Hip [employer] 03/25/2029 702-04-52E / / [id number] Thien Orthopaedics Liner Acetabular Hip Trident X3 40mm Polyethylene 0 Degree Size E 723-00-40e - [id number] Implanted:Qty: 1 on 05/03/2024 at [facility] Right: Hip [employer] 01/02/2029 723-00-40E / / [id number] Reading Orthopaedics V40 Hip +4mm Offset Colton Taper Sleeve Adapter Titanium 6519-T-204 - [id number] Implanted:Qty: 1 on 05/03/2024 at [facility] Right: Hip [employer] 01/31/2029 6519-T-204 / / [id number] Reading [employer]opaedics Stem Femoral Hip Collared Insignia [id number] High Offset Size 3 [id number] - [id number] Implanted:Qty: 1 on 05/03/2024 at [facility] Right: Hip [employer] 03/19/2029 [id number] / / [id number] Thien Orthopaedics 40mm Hip Colton Taper Head Femoral Biolox Delta 6519-1-040 - [id number] Implanted:Qty: 1 on 05/03/2024 at [facility] Right: Hip [employer] 02/27/2029 6519-1-040 / / [id number] Procedures Procedure Name Priority Date/Time Associated Diagnosis Comments EGFR Routine 05/04/2024 4:46 AM CDT POCT HEMOGLOBIN A1C Routine 04/16/2024 3:38 PM CDT SCREENING MAMMOGRAM BILATERAL W MYCHAL Schedule Routine, Read Routine (OP Routine) 02/22/2024 11:25 AM CDT Abnormal mammogram of left breast Atypical ductal hyperplasia of breast Unspecified lump in the left breast, overlapping quadrants DEXA AXIAL SKELETON BONE DENSITY 1 OR MORE SITES Schedule Routine, Read Routine (OP Routine) 03/10/2022 10:29 AM CDT Osteoporosis, post-menopausal from Last 3 Months or Most Recently Relevant to Health Maintenance Results * eGFR (05/04/2024 4:46 AM CDT) eGFR 79 >=60 mL/min/1. 73 m2 Comment: Interpretive Data Reference Interval Normal >/= 90 mL/min/1.73m2 Mildly decreased* 60 - 89 mL/min/1.73m2 Mildly to moderately decreased 45 - 59 mL/min/1.73m2 Moderately to severely decreased 30 - 44 mL/min/1.73m2 Severely decreased 15 - 29 mL/min/1.73m2 Kidney Failure < 15 mL/min/1.73m2 *Relative to young adult level Estimated glomerular filtration rate is determined by the 2020 CKD-EPI equation recommended by the National Kidney Foundation (A Unifying Approach to GFR Estimation: Recommendations of the NKF-ASK Task Force on Reassessing the Inclusion of Race in Diagnosing Kidney Disease, JASN 2020). The CKD-EPI equation should not be used for patients with unstable renal function and has not been validated in children and those over 70. Current interpretive data was last reviewed 2021. Blood 05/04/2024 4:46 AM CDT 05/04/2024 5:05 AM CDT Gertrude Garcia MD LAB BLOOD ORDERABLES Final Result Performing Organization Address [facility] de Phone Number [facility] [address] [facility] Department [place] [address] * (ABNORMAL) POCT hemoglobin A1c (04/16/2024 3:38 PM CDT) Hgb A1C, POC 6.0(H) 4.0 - 5.6 % Est Average Gluc POC 126 mg/dL [facility] Comment: The ADA recommends reporting an estimated Average Glucose (eAG) with all Hemoglobin A1c results using the equation derived from a study of 507 normal and diabetic adults. Minority populations were underrepresented and children were not included. (Diabetes Care 31:8352-8126, 2008). The eAG is not equivalent to a fasting glucose. Blood 04/16/2024 3:38 PM CDT 04/16/2024 3:38 PM CDT Ramy Selby MD POINT OF CARE TEST O RDERABLES Final Result Performing Organization Address [facility] de Phone Number [facility] Department [place] [address] * Screening Mammogram Bilateral W Mychal (02/22/2024 11:25 AM CDT) Anatomical Region Laterality Modality Breast Bilateral Mammography Narrative 02/23/2024 1:57 PM CDT Mammogram Technique: Bilateral Digital Breast Tomosynthesis, Bilateral C-view 2D Screening mammogram. Views obtained: bilateral craniocaudal and bilateral mediolateral oblique. Computer Aided Detection was performed. Mammogram Findings: The present examination has been compared to prior imaging studies performed on 04/22/2014, 04/11/2019, 09/03/2022, 09/20/2022, 10/05/2022, 11/12/2022 and 12/14/2022. There are scattered areas of fibroglandular density. Finding 1: There is a post-surgical scar in the left breast. Finding 2: There are stable intramammary lymph nodes in both breasts. There is no suspicious abnormality in either breast. Impression: Benign. Annual screening mammography is recommended. OVERALL FINAL ASSESSMENT: BI-RADS CATEGORY 2: Benign. Procedure Note Adalgisa Cortes MD - 02/23/2024 Mammogram Technique: Bilateral Digital Breast Tomosynthesis, Bilateral C-view 2D Screening mammogram. Views obtained: bilateral craniocaudal and bilateral mediolateral oblique. Computer Aided Detection was performed. Mammogram Findings: The present examination has been compared to prior imaging studies performed on 04/22/2014, 04/11/2019, 09/03/2022, 09/20/2022, 10/05/2022, 11/12/2022 and 12/14/2022. There are scattered areas of fibroglandular density. Finding 1: There is a post-surgical scar in the left breast. Finding 2: There are stable intramammary lymph nodes in both breasts. There is no suspicious abnormality in either breast. Impression: Benign. Annual screening mammography is recommended. OVERALL FINAL ASSESSMENT: BI-RADS CATEGORY 2: Benign. Ariadna Mcpherson NP IMG MAMMO PROCEDURES Final Result * Dexa Axial Skeleton Bone Density 1 or 2 Site (03/10/2022 10:29 AM CDT) Anatomical Region Laterality Modality Body N/A Radiographic Lorena ging Narrative 03/10/2022 11:29 AM CDT Patient Name: Ling Moscoso Date of : 1955 Date of scan: 03/10/2022 Bone mineral density was performed on a Live On [employer] Go Discovery Densitometer. Based on machine cross-calibration and precision studies the least significant changes of this densitometer is 0.024 g/cm2 at the spine, 0.020 g/cm2 at the total proximal femur, and 0.014g/cm2 at the forearm. HISTORY: This is a 67 y.o. postmenopausal female with a history of asthma. She reports that she has never smoked. She has never used smokeless tobacco. Currently on treatment with calcium and vitamin D and current complaint of arm pain and neck pain. INDICATIONS: Menopause status and screening for osteoporosis. FINDINGS: BONE MINERAL DENSITY OF THE LUMBAR SPINE Bone Mineral Density (BMD) of the lumbar spine was measured from L1-L4 and the average density was calculated to be 1.097 gm/cm2. This corresponds to a T-score (standard deviations from the mean of young adults) of 0.5. There is no previous study available for comparison. BONE MINERAL DENSITY OF THE PROXIMAL FEMUR Bone Mineral Density (BMD) of the left hip total was found to be 0.877 gm/cm2. This corresponds to a T-score standard deviations from the mean of young adults of -0.5. Femoral neck is 0.707 gm/cm2 with a T-score (standard deviations from the mean of young adults) of -1.3. There is no previous study available for comparison. SUMMARY: Bone mineral density shows evidence of low bone mass at the proximal femur and moderately increased fracture risk (Osteopenia). ADDITIONAL COMMENTS: Postmenopausal Women and Men Over 50: Diagnostic criteria: Osteoporosis: BMD at or below -2.5 T-score; Osteopenia (low bone mass): BMD between -1.0 and -2.5 T-score. If the patient has a history of a fragility fracture, a fracture that occurred with trauma equivalent to a fall from a standing position or less, then the diagnosis is osteoporosis regardless of bone density. The history and data sections of the bone mineral density scan were prepared by Alem Tracy (R)(CBDT) who is accredited by the International Society of Clinical Densitometry. The overall patient assessment and scan interpretation were performed by Cesar Olsen M.D. who is certified by the International Society of Clinical Densitometry. [id number] Talat Stovall MD IMG DXA PROCEDURES Fin al Result from Last 3 Months or Most Recently Relevant to Health Maintenance Insurance MEDICARE [facility] [employer]AN [facility] [employer] MEDICARE Advance Directives For more information, please contact: [phone] * Full Code (Latest Code Status on File) Date Activated Date Inactivated Comments 05/03/2024 3:50 PM 05/04/2024 6:23 PM * Full Code Date Activated Date Inactivated Comments 03/23/2022 1:54 PM 03/25/2022 9:04 PM Care Teams Senior Grant Writer Relationship Specialty Start Date End Date Talat Mckeon DO PCP - General Family Medicine 02/11/22
--- OUTSIDE RECORDS SUMMARY | 2025-05-31 00:56 | XMS_ITS | Clinical Summary ---
Author Organization [facility] Address [address] [place] [address] Care Team Providers Care Medical Physicist Name Role Phone Alexi Edward MD Primary Care Provider [phone] Source Comments [facility],non-owned Affiliates and Associated Physician Practices is amultiple site organization consisting of ambulatory clinics and hospital sitesin [place], [place], [place] and [place]. This disclosure is being madepursuant to the Care Everywhere program and may not contain all information available regarding this patient. Last updated 18.[facility] Allergies Active Allergy Reactions Criticality Noted Date Comments Contrast-Iodinated Agents For Ct/Other Itching Medium 09/21/2021 Medications * Be aware that medications may not be up to date on this document. Alwaysverify current medications with the patient. atorvastatin (LIPITOR) 40 MG tablet Take 40 mg by mouth once daily 06/26/20 21 Active FLUoxetine (PROZAC) 20 MG capsule Take 20 mg by mouth once daily 06/26/20 21 Active metFORMIN (GLUCOPHAGE) 500 MG tablet Take 500 mg by mouth 2 times daily 07/05/20 21 Active methocarbamol (ROBAXIN) 750 MG tablet Take 750 mg by mouth 3 times daily 08/28/19 22 Active naproxen (NAPROSYN) 500 MG tablet Take 500 mg by mouth 2 times daily 08/17/19 22 Active OZEMPIC, 0.25 OR 0.5 MG/DOSE, 2 MG/1.5ML pen Inject 0.05 mg subcutaneously every 7 days 06/05/20 21 Active naproxen sodium (ALEVE) 220 MG tablet Take 220 mg by mouth 2 times daily Active multivitamin daily tablet Take 1 tablet by mouth daily with food Active Pyridoxine HCl (B-6) 100 MG Take 1 capsule by mouth once daily as needed Active Cholecalciferol (D3-1000 PO) Take 1,000 capsules by mouth once daily as needed Active Multiple Minerals-Vitamins (TIEN MAG ZINC +D3) TABS Take by mouth once daily as needed Active ASPIRIN-ACETAMINO PHEN PO Take 81 mg by mouth once daily as needed Active Cetirizine HCl (WAL-ZYR ALL DAY ALLERGY CHILD PO) Ac tive cetirizine (ZYRTEC ALLERGY) 10 MG gel capsule Take 10 mg by mouth once daily Active folic acid 400 MCG tablet Take 400 mcg by mouth once daily Active Biotin 1000 MCG Acti ve cyclobenzaprine (FLEXERIL) 10 MG tabletIndications :Neck pain,Cervical radiculopathy TAKE 1/2 TABLET BY MOUTH 3 TIMES A DAY NEEDED FOR MUSCLE SPASMS 30 tablet 01/27/20 22 Active Active Problems Problem Noted Date Diagnosed Date Cervical radiculopathy 06/19/2021 Immunizations Immunization Administration Dates Next Due INFLUENZA VACCINE 06/04/2021 Family History Medical History Relation Name Comments Anxiety Disorder Other Arthritis - Rheumatoid Other Asthma Other Diabetes - Type 2 Other Relation Name Status Comments Other Social History Tobacco Use Types Packs/Day Years Used Date Smoking Tobacco: Never Smokeless Tobacco: Never Tobacco Cessation:Counseling Given: No Alcohol Use Standard Drinks/Week Comments Never 0 (1 standard drink = 0.6 oz pur e alcohol) Comments Unknown Sex and Gender Information Value Date Recorded Sex Assigned at Not on file 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 Gender Identity Not on file Sexual Orientation Not on file Last Filed Vital Signs Vital Sign Reading Time Taken Comments Blood Pressure 130/75 12/01/2021 1:12 PM CDT Pulse 108 12/01/2021 1:12 PM CDT Temperature 36.9 C (98.4 F) 11/10/2021 11:05 AM CDT Respiratory Rate 18 09/21/2021 1:08 PM 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 KEEPER Oxygen Saturation 97% 12/01/2021 1:12 PM CDT Inhaled Oxygen Concentration - - Weight 104.3 kg (230 lb) 12/01/2021 1:12 PM CDT Height 163.8 cm (5' 4.5) 12/01/2021 1:12 PM CDT Body Mass Index 38.87 12/01/2021 1:12 PM CDT Plan of Treatment Health Maintenance Due Date Last Done Comments BONE DENSITY TESTING 1955 COLOGUARD (AGES 45-75) - COL ON CA SCREENING 1955 COLON MONITORING 1955 COLONOSCOPY - COLON CA SCREENING 1955 CT COLONOGRAPHY - COLON CA SCREENING 1955 Colorectal Cancer Screening 1955 FIT - COLON CA SCREENING 1955 FLEX SIG - COLON CA SCREENING 1955 MAMMOGRAM 1955 HEPATITIS C SCREENING 01/20/1972 DTAP/TDAP/TD VACCINES (1 - Tdap) 1973 PNEUMOCOCCAL VACCINE 50+ (1 of 1 - PCV) 01/25/2004 ZOSTER VACCINE (1 of 2) 01/25/2004 SCREENING FOR DIABETES 09/21/2021 DEPRESSION SCREENING 07/25/2024 COVID-19 VACCINE (1 - 2023-2 5 season) 2025 INFLUENZA VACCINE (#1) 2025 06/04/2021 Respiratory Syncytial Virus (RSV) Vaccine Pt: or over 60 yrs (1 - 1-dose 75+ series) 2029 HEPATITIS B VACCINE Aged Out No longe r eligible based on patient's age to complete this topic HIB VACCINE Aged Out No longer eligi ble based on patient's age to complete this topic HPV VACCINE Aged Out No longer eligi ble based on patient's age to complete this topic MENINGOCOCCAL (Group B) VACC INE SHARED DECISION-MAKING Aged Out No longer eligibl e based on patient's age to complete this topic MENINGOCOCCAL GROUPS A/C/Y/W VACCINE Aged Out No longer eligible b ased on patient's age to complete this topic Insurance [employer] [facility] [place] Care Teams Medical Physicist Relationship Specialty Start Date End Date Alexi Edward MD [address] [place] [id number] PCP - General 05/15/19
--- OUTSIDE RECORDS SUMMARY | 2025-05-31 00:56 | XMS_ITS | Encounter Summary ---
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
[2025-05-31 06:46] VITALS: BP 146/79; PULSE 78; RESP 16; TEMP 36.2; O2SAT 97; BMI 38.7
--- NOTE | 2025-05-31 06:52 | WPDANESEPPF ---
Anes - Initial Pre Proc Eval Procedure: Operation Date: 05/31/25 08:00 Proposed Procedures p Screening Colonoscopy - Gurpreet Rodriges MD Date/Time: 05/31/25 06:52 Surgeon: Gurpreet Rodriges MD Pre Op Diagnosis: Screening Patient Data Age: 70 Gender: F Height: 1.65 m Weight: 105.5 kg Last Vital Signs Temp 36.2 C L 05/31/25 06:46 Pulse 78 05/31/25 06:46 Resp 16 05/31/25 06:46 BP 146/79 H 05/31/25 06:46 Pulse Ox 97 05/31/25 06:46 O2 Del Method Room Air 05/31/25 06:46 Allergies Allergy/AdvReac Type Severity Reaction Status Date / Time chlorpheniramine Allergy Unknown Skin Verified 05/27/25 14:04 (Scot-Tussin DM) Reaction dextromethorphan (Robafen DM Allergy Unknown Skin Verified 05/27/25 14:04 Cough-Chest Congest) Reaction guaifenesin Allergy Unknown Skin Verified 05/27/25 14:04 Reaction latex Allergy Unknown throat Verified 05/27/25 14:04 swelling mold Allergy Unknown Asthma Verified 05/27/25 14:04 peanut Allergy Unknown Skin Verified 05/27/25 14:04 Reaction penicillin V Allergy Unknown Skin Verified 05/27/25 14:04 Reaction sulfamethizole Allergy Unknown chills Verified 05/27/25 14:04 Contrast Media Allergy Mild Rash Uncoded 05/27/25 14:04 Home Medications ?Medication ?Instructions ?Recorded ?Confirmed ?Type aspirin 81 mg tablet,delayed 81 mg PO DAILY 06/25/19 05/31/25 History release pybytzn-lhtsiafkx-uoxg tablet 1 tablet PO DAILY 06/25/19 07/09/24 History cetirizine 10 mg tablet (All Day 5 mg PO DAILY PRN Allergic Symptoms 06/25/19 05/24/25 History Allergy (cetirizine)) biotin 1,000 mcg chewable tablet 1,000 mcg PO DAILY 01/12/21 05/31/25 History mecobalamin (vitamin B12) 1,000 1,000 mcg sublingual DAILY 01/12/21 05/31/25 History mcg disintegrating tablet,sublingual multivitamin 1 tablet PO DAILY 01/12/21 05/31/25 History pyridoxine (vitamin B6) 100 mg 100 mg PO DAILY 01/12/21 05/31/25 History tablet sodium sul 1.479 gram-potas ch See Rx Instructions PO PER PKG DIR 12/18/24 05/31/25 Rx 0.188 gram-magnes sul 0.225 gram #24 tabs tablet (Sutab) atorvastatin 40 mg tablet See Rx Instructions .Route 02/04/25 05/31/25 Rx .COMPLEX #90 tabs metformin 500 mg tablet 500 mg PO BIDWM #180 tabs 03/12/25 05/31/25 Rx albuterol sulfate 90 mcg/actuation See Rx Instructions .Route 05/17/25 05/24/25 Rx aerosol inhaler .COMPLEX #8.5 ea fluoxetine 20 mg tablet See Rx Instructions .Route 05/17/25 05/31/25 Rx .COMPLEX #90 tabs methocarbamol 500 mg tablet See Rx Instructions .Route 05/22/25 05/31/25 Rx .COMPLEX #90 tabs folic acid 1 tablet PO DAILY 05/24/25 05/31/25 History magnesium glycinate 1 tablet PO DAILY 05/24/25 05/31/25 History tramadol 50 mg tablet 50 mg PO Q6H PRN pain #30 tabs 05/27/25 05/31/25 Rx Patient hx anesthesia problems: none Family hx anesthesia problems: none Results Review: All pre-operative results and documents have been reviewed as part of the pre-operative evaluation. [facility] Past Medical History Medical History (Updated 05/31/25 @ 06:53 by Jarrett Santiago DO) PAMELA (obstructive sleep apnea) Diabetes mellitus Essential (primary) hypertension Mixed hyperlipidemia Surgical History Surgical History H/O: section History of appendectomy H/O tubal ligation H/O: hysterectomy Family History Family History Sibling Diabetes mellitus Father Family history of glaucoma, Onset Age: 69 Hypertension Family history of elevated blood lipids, Onset Age: 69 Family history of cardiovascular disease, Onset Age: 69 Cerebrovascular accident Family history of coronary artery disease Mother Hypertension Family history of elevated blood lipids, Onset Age: 76 Family history of cardiovascular disease, Onset Age: 76 Family history of malignant neoplasm of breast in first degree relative Family history of seizure disorder Other Family history of arthritis Family history of malignant neoplasm Social History Social History Smoking status: Never smoker Alcohol intake: never Substance use: never Substance use type: does not use Do You Feel Safe in your Home?: Yes Lack of Transportation: No Lack of Food: Often True Current Housing: Decline to Answer Concerned About Future Housing: Decline to Answer Difficulty Paying Gas/Electric Bills: Decline to Answer Difficulty Paying for Meds: Decline to Answer Currently Unemployed: Decline to Answer Education: Decline to Answer Difficulty w/ Childcare or Family Care: Decline to Answer Living arrangements: with family Occupation/Education: retired Gender identity (if verbalized by the patient): Female Spiritual care concerns: No Agree to blood products: Yes Anes - Eval Final PreProcedure Day of Procedure 05/31/25 06:52 Patient weight: obese Heart: regular rate and rhythm Lungs: clear to auscultation Airway: Mallampati scale class II Neurological: alert and oriented Last oral intake: >/= 8 hours ASA classification: III Emergent: no Anesthetic plan: proceed Anesthesia type and monitoring: general GIVS and standard monitoring Results Review: All pre-operative results and documents have been reviewed as part of the pre-operative evaluation. Informed Consent: The patient's anesthetic plan and its attendant risks and benefits were discussed with the patient/family/POA. Questions were solicited and answers provided to the satisfaction of the patient/family/POA.
[2025-05-31] MEDS: LACTATED RINGERS 1,000 ML 150 ML IV CONT (07:00)
--- NOTE | 2025-05-31 07:23 | P.HP_ITS ---
H&P: HPI History of Present Illness Date/Time: 05/31/25 07:23 Chief Complaint: Screening colonoscopy Narrative: This is the patient's 2nd colonoscopy. There are no GI symptoms and there is no family history of colorectal cancer. Review of Systems Review of Systems: All systems reviewed & are unremarkable except as noted in HPI and below PMFSH Past Medical History Medical History (Updated 05/31/25 @ 06:53 by Jarrett Santiago DO) PAMELA (obstructive sleep apnea) Diabetes mellitus Essential (primary) hypertension Mixed hyperlipidemia Surgical History Surgical History (Reviewed 05/27/25 @ 13:54 by George West [facility]) H/O: section History of appendectomy H/O tubal ligation H/O: hysterectomy Family History Family History (Reviewed 05/27/25 @ 13:54 by George West [facility]) Sibling Diabetes mellitus Father Family history of glaucoma, Onset Age: 69 Hypertension Family history of elevated blood lipids, Onset Age: 69 Family history of cardiovascular disease, Onset Age: 69 Cerebrovascular accident Family history of coronary artery disease Mother Hypertension Family history of elevated blood lipids, Onset Age: 76 Family history of cardiovascular disease, Onset Age: 76 Family history of malignant neoplasm of breast in first degree relative Family history of seizure disorder Other Family history of arthritis Family history of malignant neoplasm Social History Social History (Reviewed 05/27/25 @ 13:54 by George West [facility]) Smoking status: Never smoker Alcohol intake: never Substance use: never Substance use type: does not use Do You Feel Safe in your Home?: Yes Lack of Transportation: No Lack of Food: Often True Current Housing: Decline to Answer Concerned About Future Housing: Decline to Answer Difficulty Paying Gas/Electric Bills: Decline to Answer Difficulty Paying for Meds: Decline to Answer Currently Unemployed: Decline to Answer Education: Decline to Answer Difficulty w/ Childcare or Family Care: Decline to Answer Living arrangements: with family Occupation/Education: retired Gender identity (if verbalized by the patient): Female Spiritual care concerns: No Agree to blood products: Yes Meds Home Medications and Allergies Home Medications ?Medication ?Instructions ?Recorded ?Confirmed ?Type aspirin 81 mg tablet,delayed 81 mg PO DAILY 06/25/19 1 07/31/24 History release dvmhuyh-obangjjks-nptf tablet 1 tablet PO DAILY 07/09/24 History cetirizine 10 mg tablet (All Day 5 mg PO DAILY PRN All ergic Symptoms 06/25/19 05/24/25 History Allergy (cetirizine)) biotin 1,000 mcg chewable tablet 1,000 mcg PO DAILY 05/31/25 History mecobalamin (vitamin B12) 1,000 1,000 mcg sublingual D AILY 01/12/21 05/31/25 History mcg disintegrating tablet,sublingual multivitamin 1 tablet PO DAILY 01/12/21 1 07/31/24 History pyridoxine (vitamin B6) 100 mg 100 mg PO DAILY 1 05/31/25 History tablet sodium sul 1.479 gram-potas ch See Rx Instructions PO PER PKG DIR 12/18/24 05/31/25 Rx 0.188 gram-magnes sul 0.225 gram #24 tabs tablet (Sutab) atorvastatin 40 mg tablet See Rx Instructions .Route 0 02/04/25 05/31/25 Rx .COMPLEX #90 tabs metformin 500 mg tablet 500 mg PO BIDWM #180 tabs 05/31/25 Rx albuterol sulfate 90 mcg/actuation See Rx Instructions .Route 05/17/25 05/24/25 Rx aerosol inhaler .COMPLEX #8.5 ea fluoxetine 20 mg tablet See Rx Instructions .Route 1 05/31/25 Rx .COMPLEX #90 tabs methocarbamol 500 mg tablet See Rx Instructions .Route 05/22/25 05/31/25 Rx .COMPLEX #90 tabs folic acid 1 tablet PO DAILY 05/24/25 1 07/31/24 History magnesium glycinate 1 tablet PO DAILY 05/24/25 1 07/31/24 History tramadol 50 mg tablet 50 mg PO Q6H PRN pain #30 ta bs 05/27/25 05/31/25 Rx Allergies Allergy/AdvReac Type Severity Reaction Status Date / Time chlorpheniramine Allergy Unknown Skin Verified 05/27/25 14:04 (Scot-Tussin DM) Reaction dextromethorphan (Robafen DM Allergy Unknown Skin Verified 05/27/25 14:04 Cough-Chest Congest) Reaction guaifenesin Allergy Unknown Skin Verified 05/27/25 14:04 Reaction latex Allergy Unknown throat Verified 05/27/25 14:04 swelling mold Allergy Unknown Asthma Verified 05/27/25 14:04 peanut Allergy Unknown Skin Verified 05/27/25 14:04 Reaction penicillin V Allergy Unknown Skin Verified 05/27/25 14:04 Reaction sulfamethizole Allergy Unknown chills Verified 05/27/25 14:04 Contrast Media Allergy Mild Rash Uncoded 05/27/25 14:04 Vital Signs Vital Signs - 24 hr 05/31/25 06:46 Temperature 97.1 F L Pulse Rate 78 Respiratory Rate 16 Blood Pressure 146/79 H Pulse Oximetry 97 Oxygen Delivery Room Air Exam Const: General: cooperative and healthy appearing Resp: Effort & Inspection: normal respiratory effort and able to speak in complete sentences Auscultation: clear to auscultation bilaterally Cardio: Rate: regular rate Rhythm: regular rhythm GI: Inspection: normal to inspection GI Palp: No No hepatosplenomegaly present Auscultation: normal bowel sounds Rectal Exam: deferred Skin: General skin exam: normal color Psych: Appearance: grossly normal Mental Status: mental status grossly normal Assessment and Plan Assessment and plan (1) Colon cancer screening: Code(s): Z12.11 - Encounter for screening for malignant neoplasm of colon Status: Acute Assessment and Plan: The patient is deemed a good candidate for the procedure. Consent signed. Will proceed.
[2025-05-31] MEDS: SIMETHICONE ORAL SUSPENSION 20 MG/0.3 ML 30 ML BOTTLE 0.6 ML IRRIGATION (08:00)
--- NOTE | 2025-05-31 08:19 | S_PTH ---
PATIENT: Ling Moscoso LOC: [facility] U#:[id number] AGE/SX: 70/F ROOM: RE05/31/[address]: Gurpreet Rodriges MD : 1955 BED: DIS: 05/31/2025 SPEC #: [id number] RECD: 05/31/25 09:41 STATUS: SOSA REClyde #: [id number] STEFANIE: 05/31/25 08:[address]: Gurpreet Rodriges DEPT: [facility] Surgical RECD BY: Keya Valdez ENTERED: 05/31/25 09:42 SP TYPE: Surgical OTHR DR: Keith Bethea MD Tissues: A - Colon Polypectomy B - Colon Polypectomy C - Colon Polypectomy Procedures: Hematoxylin and Eosin Stain Gross and Microscopic Level 4
[2025-05-31 08:21] VITALS: BP 137/86; PULSE 85; RESP 17; O2SAT 98
[2025-05-31 08:31] VITALS: BP 150/88; PULSE 80; RESP 18; O2SAT 98
[2025-05-31 08:41] VITALS: BP 141/82; PULSE 76; RESP 19; O2SAT 99
== END 2025-05-31 08:55 | disposition home or self-care (01) ==
PROVIDERS: PCP Family Medicine; Referring Provider Family Medicine; Visit Provider Internal Medicine Gastroenterology
PROC: 0DJD8ZZ Inspection of Lower Intestinal Tract, Via Natural or Artificial Opening Endoscopic (ICD-10-PCS; CPT 45378; principal; 2025-05-31 08:00)
DX: Z12.11 Encounter for screening for malignant neoplasm of colon (principal); D12.2 Benign neoplasm of ascending colon; D12.3 Benign neoplasm of transverse colon; K63.5 Polyp of colon; K64.8 Other hemorrhoids; K57.30 Diverticulosis of large intestine without perforation or abscess without bleeding; I10 Essential (primary) hypertension; E11.9 Type 2 diabetes mellitus without complications; E78.2 Mixed hyperlipidemia; G47.33 Obstructive sleep apnea (adult) (pediatric); E66.9 Obesity, unspecified; Z68.38 Body mass index [BMI] 38.0-38.9, adult; Z79.82 Long term (current) use of aspirin; Z79.84 Long term (current) use of oral hypoglycemic drugs; Z79.51 Long term (current) use of inhaled steroids; Z79.891 Long term (current) use of opiate analgesic; Z98.890 Other specified postprocedural states; Z98.51 Tubal ligation status; Z80.3 Family history of malignant neoplasm of breast; Z82.49 Family history of ischemic heart disease and other diseases of the circulatory system
CPT/HCPCS: 45390; 82948; 88305; J2003; J2704; J7120